=== PATIENT | male | born 1955 | race Caucasian/White ===

== ENCOUNTER → 2017-04-21 | Outpatient (CLI) | payer OTHER ==
[~2017-04-21] MED LIST: CONTRAST GIVEN MC
[2017-04-21] MEDS: IOHEXOL 240 MG/ML 50ML VIAL. PO (10:15)
[2017-04-21] MEDS: IOHEXOL 300 MG/ML 100ML VIAL. IV (10:57)
== END | disposition home or self-care (01) ==
LOC: CT 09:06
DX: K57.30 Diverticulosis of large intestine without perforation or abscess without bleeding (principal); M43.06 Spondylolysis, lumbar region
CPT/HCPCS: 74177; Q9966; Q9967

== ENCOUNTER → 2017-04-28 | Day surgery (SDC) | payer OTHER ==
[~2017-04-28] MED LIST changes: -CONTRAST GIVEN MC; +LIDOCAINE 1% PF 2 ML VIAL. ID; +LIDOCAINE 2% 100 MG/5 ML SYRINGE.; +MORPHINE SULFATE 4 MG/ML DISP.SYRIN. IV; +PROCHLORPERAZINE 10 MG/2 ML VIAL. IV; +PROPOFOL 60 ML IV; +fentaNYL PF VIAL 100 MCG/2 ML VIAL IV
[2017-04-28] MEDS: IV RINGERS,LACTATED 1000ML 1,000 ML IV (07:58)
== END | disposition home or self-care (01) ==
LOC: ENDOS 07:19
DX: K57.30 Diverticulosis of large intestine without perforation or abscess without bleeding (principal); K21.9 Gastro-esophageal reflux disease without esophagitis; J44.9 Chronic obstructive pulmonary disease, unspecified; Z98.890 Other specified postprocedural states; Z79.899 Other long term (current) drug therapy; Z86.010 Personal history of colon polyps; Z79.82 Long term (current) use of aspirin
CPT/HCPCS: 43235; J2704

== ENCOUNTER → 2017-06-25 | Outpatient (CLI) | payer OTHER | END | disposition home or self-care (01) | LOC: RAD 10:37 | DX: R06.00 Dyspnea, unspecified (principal); J44.9 Chronic obstructive pulmonary disease, unspecified | CPT/HCPCS: 71046 ==

== ENCOUNTER → 2017-06-25 | Outpatient (CLI) | payer OTHER ==
[2017-06-25] MEDS: ALBUTEROL SULFATE 2.5 MG/3 ML NEBU. NEB (09:33)
== END | disposition home or self-care (01) ==
LOC: PF 09:01
DX: J44.9 Chronic obstructive pulmonary disease, unspecified (principal); Z79.899 Other long term (current) drug therapy
CPT/HCPCS: 94060; 94640; J7613

== ENCOUNTER → 2020-02-08 | Outpatient (CLI) | payer MEDICARE ==
[2017-04-28 09:32] VITALS: BP 132/96
[~2020-02-08] MED LIST changes: +ALBU2.5V8 INH; +ASPI-482 PO; +BUTA1CAP57 PO; +CARB200T PO; +ESCITALOPRAM OX10 MG PO; +HYDR-2679 PO; +HYDR-3164 PO; -LIDOCAINE 1% PF 2 ML VIAL. ID; -LIDOCAINE 2% 100 MG/5 ML SYRINGE.; +MELO7.5T29 PO; +METAMUCIL425 GM PO; +METO-239 PO; +METO-269 PO; +MOME13HF IH; -MORPHINE SULFATE 4 MG/ML DISP.SYRIN. IV; +NORT10CA PO; +OMEP40CA45 PO; -PROCHLORPERAZINE 10 MG/2 ML VIAL. IV; -PROPOFOL 60 ML IV; +PSYL0.5215 PO; +RIZA10TA PO; +TOPI100T42 PO; +TOPI25TA7 PO; -fentaNYL PF VIAL 100 MCG/2 ML VIAL IV
== END ==
LOC: LAB 12:47
PROVIDERS: ATTEND Surgery
DX: Z01.812 Encounter for preprocedural laboratory examination (principal); Z20.828 Contact with and (suspected) exposure to other viral communicable diseases; K42.9 Umbilical hernia without obstruction or gangrene
CPT/HCPCS: U0003

== ENCOUNTER 2020-02-13 09:12 | Day surgery (SDC) | payer MEDICARE ==
[~2020-02-13] VITALS: Ht 180.3 cm; Wt 90.5 kg
[~2020-02-13 09:12] MED LIST changes: +DEXAMETHASONE SOD PHOS 4 MG/ML VIAL ONE; -HYDR-3164 PO; +IV RINGERS,LACTATED 1000ML 1,000 ML IV SCH; +LIDOCAINE 1% PF 2 ML VIAL. ID PRN; +MIDAZOLAM HCL/PF 2 MG/2 ML VIAL. ONE; +MORPHINE SULFATE 2 MG/ML VIAL. IV PRN; -OMEP40CA45 PO; +OMEP40CA7 PO; +ONDANSETRON PF 4 MG/2 ML VIAL. IV PRN; +ONDANSETRON PF 4 MG/2 ML VIAL. ONE; +PROCHLORPERAZINE 10 MG/2 ML VIAL. IV PRN; +PROPOFOL 10 MG/ML (20ML) VIAL. IV ONE; +fentaNYL PF VIAL 100 MCG/2 ML VIAL IV PRN; +fentaNYL PF VIAL 100 MCG/2 ML VIAL ONE
[2020-02-13] MEDS ORDERED: SUCCINYLCHOLINE 200 MG/10 ML VIAL. ONE (09:57)
[2020-02-13] MEDS ORDERED: BUPIVACAINE-EPI 0.5%-1:200000 MPF 30 ML VIAL. INJ ONE (10:00)
[2020-02-13] MEDS ORDERED: hydrALAZINE 20 MG/ML VIAL. ONE (10:56)
[2020-02-13] MEDS ORDERED: fentaNYL PF VIAL 100 MCG/2 ML VIAL ONE ×3 (11:45→12:31)
--- NOTE | 2020-02-13 11:51 | DISCH ---
DISCHARGE INSTRUCTIONS Condition on Discharge Condition on Discharge: Stable Activity After Discharge Activity Instructions for Disc: Other, see below (no lifting over 20 lbs, s trenuous activity X 4 weeks) Diet after Discharge Diet after Discharge: Regular Wound Incision Care Wound/Incision Care: Other, see below (keep dressing clean and dry X 72 hours, may then remove and shower; keep abdominal binder on while ambulating) Follow-Up Follow up with: Dr Franks in office in 2 weeks, call for appointment [phone] KEITH FRANKS MD Feb 13, 2020 11:51
--- NOTE | 2020-02-13 11:54 | PDOC4 ---
Operative Note Operative Note Operative Note: Preoperative Diagnosis: Umbilical hernia Postoperative Diagnosis: Same Procedure: Umbilical hernia repair with mesh Surgeon: Naren Parking Enforcer: Dolores MENENDEZ Anesthesia: General EBL: 10 mL Specimen: None Drains: None Complications: None Indication: The patient is a 65-year-old male who is referred with umbilical hernia. He was offered surgical repair. The risks of surgery were discussed which include bleeding, infection, recurrence, pain, anesthetic risk, potential need for additional surgery procedure. He understands and would like to proceed. Description: The patient was taken to the operating room and placed supine in the operating table. General anesthesia was performed. The abdomen is prepped with ChloraPrep and draped in a standard surgical manner. An infraumbilical incision was made in the skin with a scalpel. Cautery dissection was carried down to the fascia. The umbilical tissue was elevated off the fascia exposing the hernia defect. A preperitoneal plane was developed circumferentially. The extruded sac and preperitoneal fat was reduced. The defect was then filled with a medium sized Ventralex ST which was placed in this preperitoneal plane. The mesh was sutured into position at the 12, 3, 6, 9:00 positions using 0 Prolene in a horizontal mattress fashion. The fascial edges were approximated over the mesh with interrupted 0 Prolene. The umbilicus was secured back to the fascia with 0 Vicryl. The subcutaneous tissue was closed with 3-0 Vicryl and the skin approximated with 4-0 Monocryl. The incision was infiltrated with half percent Marcaine with epinephrine. Steri-Strips and a sterile dressing were applied. The patient tolerated the procedure well and was sent to the recovery room in stable condition. At the end of the case all counts were correct. KEITH FRANKS MD Feb 13, 2020 11:54
[2020-02-13] MEDS ORDERED: HYDR-3164 PO (11:58)
[2020-02-13] MEDS ORDERED: hydrALAZINE 20 MG/ML VIAL. IVP ONE (12:00)
[2020-02-13] MEDS: fentaNYL PF VIAL 100 MCG/2 ML VIAL IV PRN ×4 (12:02→13:00)
[2020-02-13] MEDS ORDERED: HYDROcodone/APAP 5/325MG 1 TAB TABLET PO ONE ×2 (12:15)
[2020-02-13] MEDS ORDERED: HYDROmorphone 2 MG/ML VIAL ONE (12:16)
[2020-02-13] MEDS: HYDROmorphone 2 MG/ML VIAL IV PRN ×2 (12:18→12:28)
[2020-02-13 12:37] VITALS: BP 152/88
== END 2020-02-13 13:10 | disposition home or self-care (01) ==
LOC: SURG 09:12
PROVIDERS: ATTEND Surgery
DX: K42.9 Umbilical hernia without obstruction or gangrene (principal); J44.9 Chronic obstructive pulmonary disease, unspecified; K21.00 Gastro-esophageal reflux disease with esophagitis, without bleeding; I10 Essential (primary) hypertension; G44.84 Primary exertional headache; Z72.89 Other problems related to lifestyle; Z87.891 Personal history of nicotine dependence; Z79.899 Other long term (current) drug therapy; Z98.890 Other specified postprocedural states; Z86.010 Personal history of colon polyps; Z86.73 Personal history of transient ischemic attack (TIA), and cerebral infarction without residual deficits
CPT/HCPCS: 49585; C1781; J0330; J0360; J0690; J1100; J1170; J2250; J2405; J2704; J3010; J7120